=== PATIENT | male | born 1965 | race Caucasian/White ===

== ENCOUNTER 2016-10-15 10:00 | Outpatient (CLI) | payer OTHER, MEDICAID | END 2016-10-15 10:01 | disposition home or self-care (01) | LOC: EMS 10:00 | PROVIDERS: ATTEND Surgery | DX: R40.20 Unspecified coma (principal) | CPT/HCPCS: A0425; A0433 ==

== ENCOUNTER 2016-10-15 10:18 | Emergency (ER) | payer OTHER, MEDICAID ==
[2016-10-15] MEDS ORDERED: WATER FOR INJECTION,STERILE 10 ML ONE (10:19)
[2016-10-15] MEDS ORDERED: MIDAZOLAM 2 MG/2 ML VIAL ONE ×2 (10:19→12:23)
[2016-10-15] MEDS ORDERED: VECURONIUM 10 MG VIAL ONE (10:19)
[2016-10-15] MEDS: VECURONIUM 10 MG VIAL IVP STA (10:24)
[2016-10-15] MEDS: MIDAZOLAM 2 MG/2 ML VIAL IVP STA (10:24)
--- NOTE | 2016-10-15 10:33 | ED Physician Documentation ---
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 ANODIC TREATER Review of Systems Unable to obtain: Unresponsive, Intubated PD ED PE NORMAL - Vitals Vital signs reviewed: Yes (hypertensive) - General General: No: Alert and oriented X 3 - HEENT HEENT: No: Atraumatic (dried blood R side, no lac found), PERRL (R4 L7) - Neck Neck: Other (collared) - Cardiac Cardiac: RRR - Respiratory Respiratory: Other (intubated by EMS, thick gomes secretions in tube, brandy BS, tachypneic bucking and breathing over vent) - Abdomen Abdomen: Soft, Non tender - Derm Derm: Other (abrasion and early bruising to R posterior hip) - Neuro Neuro: Other (upgoing babinski brandy). No: Alert and oriented X 3 Results - Vitals Vitals: Vital Signs - 24 hr 10/15/16 10/15/16 10/15/16 10:20 10:30 10:36 Temperature 37.1 C Heart Rate 114 H 122 H Respiratory 10 L 10 L Rate Blood Pressure 213/123 H 208/118 H O2 Saturation 96 100 10/15/16 10/15/16 10/15/16 11:00 11:15 11:45 Temperature Heart Rate 107 H 110 H 107 H Respiratory Rate Blood Pressure 208/115 H 197/126 H 228/131 H O2 Saturation 100 100 100 10/15/16 10/15/16 12:00 12:30 Temperature Heart Rate 113 H 127 H Respiratory 23 23 Rate Blood Pressure 167/106 H O2 Saturation 100 100 Oxygen O2 Source Room air - EKG (time done) 1028 Rate: Rate (enter#) (114) Rhythm: Sinus tachycardia [place]: Normal Intervals: Normal IN, Prolonged QT (borderline) QRS: Normal Ischemia: Other (LVH) - Labs Labs: Laboratory Tests 10/15/16 10/15/16 10/15/16 10:34 10:34 10:34 WBC 29.5 H RBC 5.89 Hgb 17.5 Hct 51.6 MCV 87.7 MCH 29.8 MCHC 34.0 RDW 13.6 Plt Count 393 MPV 9.0 Neut # 25.7 H Lymph # 1.0 L Delta # 2.7 H Eos # 0.0 Baso # 0.1 Absolute Nucleated RBC 0.02 Nucleated RBCs 0.1 Manual Slide Review Indicated RBC Morph Micro Appear 1+ ANISOCYTOSIS Bld Gas Analysis Time Patient Temperature ABG pH ABG pCO2 ABG pO2 ABG HCO3 ABG Total CO2 ABG O2 Saturation ABG Base Excess Respiration Rate O2 Delivery Device Vent Mode FiO2 Tidal Volume Pressure Support Vent Sodium 138 Potassium 3.6 Chloride 101 Carbon Dioxide 24 Anion Gap 13.0 BUN 39 H Creatinine 1.5 H Estimated GFR (MDRD) 50 L Glucose 128 H Calcium 9.3 Total Bilirubin 1.5 H AST 143 H ALT 66 H Alkaline Phosphatase 104 Total Creatine Kinase Troponin I 0.06 Total Protein 8.1 Albumin 4.6 Globulin 3.5 Albumin/Globulin Ratio 1.3 Lipase 12 L Urine Color Urine Clarity Urine pH Ur Specific [place] Urine Protein Urine Glucose (UA) Urine Ketones Urine Occult Blood Urine Nitrite Urine Bilirubin Urine Urobilinogen Ur Leukocyte Esterase Urine RBC Urine WBC Ur Squamous Epith Cells Urine Bacteria Ur Microscopic Review Urine Culture Comments Salicylates < 6.0 Urine Opiates Screen Ur Oxycodone Screen Urine Methadone Screen Ur Propoxyphene Screen Acetaminophen < 10 L Ur Barbiturates Screen Ur Tricyclics Screen Ur Phencyclidine Scrn Ur Amphetamine Screen U Methamphetamines Scrn U Benzodiazepines Scrn Urine Cocaine Screen U Cannabinoids Screen Ethyl Alcohol < 5.0 10/15/16 10/15/16 10/15/16 10:34 10:41 11:57 WBC RBC Hgb Hct MCV MCH MCHC RDW Plt Count MPV Neut # Lymph # Delta # Eos # Baso # Absolute Nucleated RBC Nucleated RBCs Manual Slide Review RBC Morph Micro Appear Bld Gas Analysis Time 1157 Patient Temperature 37.0 ABG pH 7.39 ABG pCO2 39 ABG pO2 156 H* ABG HCO3 22.7 ABG Total CO2 23.9 ABG O2 Saturation 99 H ABG Base Excess -1.8 Respiration Rate 12 O2 Delivery Device VENTILATOR Vent Mode SIMV FiO2 100.00 Tidal Volume 600 Pressure Support Vent 5 Sodium Potassium Chloride Carbon Dioxide Anion Gap BUN Creatinine Estimated GFR (MDRD) Glucose Calcium Total Bilirubin AST ALT Alkaline Phosphatase Total Creatine Kinase 3518 H* Troponin I Total Protein Albumin Globulin Albumin/Globulin Ratio Lipase Urine Color YELLOW Urine Clarity SL. CLOUDY Urine pH 6.0 Ur Specific [place] 1.025 Urine Protein >=300 Urine Glucose (UA) NEGATIVE Urine Ketones 40 H Urine Occult Blood LARGE H Urine Nitrite NEGATIVE Urine Bilirubin NEGATIVE Urine Urobilinogen 0.2 (NORMAL) Ur Leukocyte Esterase NEGATIVE Urine RBC 6-10 H Urine WBC 0-3 Ur Squamous Epith Cells MOD Squamous H Urine Bacteria Moderate H Ur Microscopic Review INDICATED Urine Culture Comments NOT INDICATED Salicylates Urine Opiates Screen NEGATIVE Ur Oxycodone Screen NEGATIVE Urine Methadone Screen NEGATIVE Ur Propoxyphene Screen NEGATIVE Acetaminophen Ur Barbiturates Screen NEGATIVE Ur Tricyclics Screen NEGATIVE Ur Phencyclidine Scrn NEGATIVE Ur Amphetamine Screen NEGATIVE U Methamphetamines Scrn NEGATIVE U Benzodiazepines Scrn NEGATIVE Urine Cocaine Screen NEGATIVE U Cannabinoids Screen NEGATIVE Ethyl Alcohol - Rads (name of study) CXR Radiology: See rad report (ET 3 cm above adrian, OG in stomach) CTH Radiology: See rad report (large intra axial hematoma centered L basal ganglia extending to L temporal lobe 4.9X 4.95 X 4 cm with surrounding edema. Sig mass effect complete effacement cortical sulci and sig subfalcine and subuncal herniation with effacement of basal cisterns, probable downward trantentorial shift as well on the L, temporal horn R lateral ventricle dilated suggestin entrapment) CT CS Radiology: See rad report (no fx or malalignment) PD MEDICAL DECISION MAKING - ED course ED course: no hx on pt not in EMR not in MINS his dad is en route but not here yet ex called and I spoke to her - she states hx HTN, hyperthyroid, takes no meds, no known drug allergies, brother overdosed on asa and this pt may have had a prior OD as well but she doesn't know on what, smoker no drugs or EtOH large L sided ICH with shift pt intubated OG ellis even on propofol, BP high, per [facility] started nicardipine as well Dr Martinez at [facility] accepts and rec not to give TXA at this time I spoke with ex and sister on phone and per nurse Sheela Dad arrived briefly but immediately left again and I did not get to speak with him Departure - Departure Disposition: 02 Transfer Acute Care Hosp Clinical Impression: Renal insufficiency Intraparenchymal hematoma of brain Qualifiers: Encounter type: initial encounter Laterality: left Loss of consciousness presence/duration: with LOC of unspecified duration Qualified Code(s): S06.359A - Traumatic hemorrhage of left cerebrum with loss of consciousness of unspecified duration, initial encounter Rhabdomyolysis Qualifiers: Rhabdomyolysis type: traumatic Encounter type: initial encounter Qualified Code (s): T79.6XXA - Traumatic ischemia of muscle, initial encounter Condition: Critical Discharge Date/Time: 10/15/16 13:02
[2016-10-15 10:48] LABS: BASOPHILS # (AUTO) 0.1 10^3/uL (0.0-0.1); BASOPHILS % (AUTO) 0.3 %; EOSINOPHILS % (AUTO) 0.1 %; HCT - HEMATOCRIT 51.6 % (42.0-52.0); HGB - HEMOGLOBIN 17.5 g/dL (14.0-18.0); LYMPHOCYTES % (AUTO) 3.4 %; MEAN CORPUSCULAR HEMOGLOBIN 29.8 pg (27.0-31.0); MEAN CORPUSCULAR VOLUME 87.7 fL (80.0-94.0); MONOCYTES # (AUTO) 2.7 10^3/uL (0.0-1.0); MONOCYTES % (AUTO) 9.2 %; NEUTROPHILS # (AUTO) 25.7 10^3/uL (1.5-6.6); NUCLEATED RED BLOOD CELLS AUTO 0.1 /100WBC; RED BLOOD COUNT 5.89 10^6/uL (4.70-6.10); RED CELL DISTRIBUTION WIDTH 13.6 % (12.0-15.0); UNCORRECTED WHITE BLOOD COUNT 29.5 x10^3/uL; WHITE BLOOD COUNT 29.5 x10^3/uL (4.8-10.8)
[2016-10-15 10:50] LABS: UA w/ MICROSCOPIC CHARGE YES
--- NOTE | 2016-10-15 10:52 | XRAY Report ---
EXAM: CHEST RADIOGRAPHY EXAM DATE: 10/15/2016 10:44 AM. CLINICAL HISTORY: Tube and OG placement. COMPARISON: None. TECHNIQUE: 1 view. FINDINGS: Lungs/Pleura: No focal opacities evident. No pleural effusion. No pneumothorax. Mediastinum: Within exam limitations, cardiomediastinal contour is normal. Other: The ET tube is positioned 3.1 cm above the adrian. The NG tube traction of the stomach. IMPRESSION: 1. The ET tube is positioned 3.17 m above the adrian. 2. No focal consolidation. [facility] Referring Provider Line: [phone] SITE ID: [id number]
[2016-10-15 11:04] LABS: BILIRUBIN,URINE NEGATIVE (NEGATIVE)
[2016-10-15 11:05] LABS: ACETAMINOPHEN < 10 ug/mL (10-30); ALBUMIN/GLOBULIN RATIO 1.3 (1.0-2.2); BILIRUBIN,TOTAL 1.5 mg/dL (0.2-1.0); BUN - BLOOD UREA NITROGEN 39 mg/dL (6-20); CALCIUM 9.3 mg/dL (8.5-10.3); CARBON DIOXIDE - CO2 24 mmol/L (21-32); CHLORIDE 101 mmol/L (101-111); CREATININE 1.5 mg/dL (0.6-1.2); GFR - MDRD 50 (>89); GLUCOSE 128 mg/dL (70-100); LIPASE 12 U/L (22-51); POTASSIUM 3.6 mmol/L (3.5-5.0); SALICYLATE < 6.0 mg/dL; SODIUM 138 mmol/L (135-145); TOTAL PROTEIN 8.1 g/dL (6.7-8.2)
[2016-10-15 11:09] LABS: UR CULTURE IF IND NOT INDICATED; WBC,URINE 0-3 /HPF (0-3)
[2016-10-15] MEDS ORDERED: PROPOFOL 1000 MG/100 ML 100 ML IV ONE (11:30)
[2016-10-15] MEDS: PROPOFOL 1000 MG/100 ML 100 ML IV STA (11:39)
--- NOTE | 2016-10-15 12:14 | CT Preliminary Report ---
Exam: CT Head W/O Impression: 1. Large intra-axial hematoma, centered in lateral left basal ganglia region with extension into uppe r left temporal lobe. The hematoma measures about 4.9 x 4.95 x 4 cm. There is surrounding edema. 2. Significant associated mass effect with complete effacement of cortical sulci over the cerebral co nvexities, significant subfalcine and electronic warfare operator herniation and complete effacement of the basal cistern s. There is some probable early downward transtentorial herniation on the left. 3. Temporal horn of right lateral ventricle is dilated suggesting early entrapment. 4. No obvious acute ischemic change is demonstrated within the brain. SITE ID: [id number]
--- NOTE | 2016-10-15 12:24 | CT Preliminary Report ---
Exam: CT Cervical Spine W/O Impression: 1. Multilevel degenerative changes as described. 2. No evidence of fracture or acute malalignment. 3. Please note position of orogastric tube (see above). SITE ID: [id number]
[2016-10-15] MEDS: MIDAZOLAM 2 MG/2 ML VIAL IVP ONE (12:30)
--- NOTE | 2016-10-15 12:51 | CT Report ---
CT HEAD WITHOUT CONTRAST INDICATION: 51-year-old male, found down, left pupil 7 mm, right 4 mm. The patient is unresponsive. P lease assess. COMPARISON: None. TECHNIQUE: Sequential 5 mm axial images were obtained through the brain. In accordance with CT protocol optimization, one or more of the following dose reduction techniques w ere utilized for this exam: automated exposure control, adjustment of mA and/or KV based on patient s ize, or use of iterative reconstructive technique. FINDINGS: No focal scalp hematoma is demonstrated. The skull and skull base appear intact. The mastoid air cell s and middle ear cavities are clear. The imaged paranasal sinuses appear clear. The patient is orally intubated. An orogastric tube is present. The orogastric tube appears to be looped in the nasopharyn x (see image 1 of series 3). The patient's head is significantly tilted in the CT gantry, making assessment somewhat difficult. There is a fairly large, intra-axial hematoma centered in the lateral left basal ganglia region with extension caudad, through the temporal stem, into the upper left temporal lobe. The hematoma measures about 4.9 cm maximal AP x 4.95 cm maximal transverse x about 4 cm maximal craniocaudad. This represe nts a roughly 50 mL hematoma. There is surrounding hypodensity, likely representing reactive vasogeni c edema. There is left-sided mass effect with effacement of the cortical sulci. In addition, there is significant left to right midline shift that appears to measure up to 10 mm. There is significant, m edial displacement of the left uncus and parahippocampal gyrus with complete effacement of the perime sencephalic cisterns. There appears to be at least early downward transtentorial herniation on the le ft. There is significant compression of left lateral ventricle. The third ventricle is completely eff aced. The temporal horn of the right lateral ventricle is dilated, suggesting probable early entrapme nt. On image 11 noted is subtle hyperdensity in the distribution of the sylvian cisterns, anterior interh emispheric fissure, and perimesencephalic cisterns. This probably represents "pseudo-subarachnoid hem orrhage" rather than a true subarachnoid blood. On image 15 of series 2, there is a small focus of hy perdensity in posterior aspect frontal horn left lateral ventricle or in left foramen of [place]. This could represent a small amount of intraventricular blood or may simply represent the choroid plexus. No epidural or subdural hematoma is demonstrated. No obvious acute ischemic change is seen within the brain. However, assessment is somewhat limited du e to fairly extensive noise on brain window images. IMPRESSION: 1. Large intraaxial hematoma, centered in lateral left basal ganglia region with extension into upper left temporal lobe. The hematoma measures about 4.9 x 4.95 x 4 cm. There is surrounding edema. 2. Significant associated mass effect with complete effacement of cortical sulci over the cerebral co nvexities, significant subfalcine and uncal herniation and complete effacement of the basal cisterns. There is probable early downward transtentorial herniation on the left. 3. Temporal horn of right lateral ventricle is dilated suggesting early entrapment. 4. No obvious acute ischemic change is demonstrated within the brain. Critical Result: A brief preliminary report for this examination was given to Dr. Chan, following preliminary assess ment on 10/15/2016 at approximately 11:52 a.m. Referring Provider Line: [phone] SITE ID: [id number]
--- NOTE | 2016-10-15 12:51 | CT Report ---
CT CERVICAL SPINE WITHOUT CONTRAST INDICATION: 51-year-old male found down. Please assess. TECHNIQUE: Helical scan with reconstruction into 2 mm axial images. In addition, sagittal and coronal reformatio ns have been generated. Images are available in bone and soft tissue windows. In accordance with CT protocol optimization, one or more of the following dose reduction techniques w ere utilized for this exam: automated exposure control, adjustment of mA and/or KV based on patient s ize, or use of iterative reconstructive technique. COMPARISON: None. FINDINGS: No acute cervical spine fracture is demonstrated. The vertebral body heights are maintained throughou t. The pedicles and posterior arches appear intact. There is a [id number] levoconvex scoliosis with apex near the cervicothoracic junction. Alignme nt in the sagittal plane is essentially normal. There is multilevel degenerative disk space narrowing with mild narrowing at C4-C5, mild to moderate narrowing at C5-C6 and moderate narrowing at C6-C7 and C7-T1. Evaluation for disk herniation/spinal s tenosis is limited on this study performed without intrathecal contrast. However, no obvious, high-gr tra spinal stenosis is demonstrated. There is multilevel bony facet and uncovertebral hypertrophy wit h associated foraminal narrowing. The foraminal narrowing appears to be most prominent and relatively severe at C5-C6 and C6-C7 on the right where there could be impingement of exiting nerve roots. No lytic or destructive bone lesion is demonstrated. The patient is orally intubated. The distal tip of the endotracheal tube is not included in the field of view provided. An orogastric tube has been inserted. It descends along the left side of the phary nx, into the upper esophagus where it is looped back on itself. It then ascends craniad to the nasoph arynx where it is looped back on itself. It then descends to at least the level of the upper thoracic esophagus at about the T2-T3 level. The regional soft tissues in the neck are unremarkable. No obvious changes of contusion or hematoma d emonstrated. There is non-aeration in the posterior aspect, upper lobe right lung, probably representing atelectas is. No discrete, mass/nodule is demonstrated in the imaged upper lungs. IMPRESSION: 1. Multilevel degenerative changes as described. 2. No evidence of fracture or acute malalignment. 3. Please note position of orogastric tube (see above). Referring Provider Line: [phone] SITE ID: [id number]
[2016-10-15 12:56] VITALS: BP 167/106
[2016-10-15 13:40] LABS: ABG ANALYSIS TIME 1157; ABG PCO2 39 mmHg (34-45); ABG PH 7.39 (7.35-7.45)
[2016-10-15 13:41] LABS: ABG BASE EXCESS -1.8 mmol/L (-2.0-3.0); ABG HCO3 22.7 mmol/L (22.0-26.0); ABG MODE OF VENTILATION SIMV; ABG O2 DEVICE VENTILATOR; ABG OXYGEN SATURATION 99 % (94-98); ABG PRESSURE SUPPORT VENT 5 cmH2O; ABG RESPIRATORY RATE 12 b/min; ABG TCO2 23.9 MMOL/L (21.0-29.0)
[2016-10-15 13:42] LABS: ABG PO2 156 mmHg (80-100)
== END 2016-10-15 13:02 | disposition short-term general hospital (02) ==
LOC: ED 10:18
DX: S06.359A Traumatic hemorrhage of left cerebrum with loss of consciousness of unspecified duration, initial encounter (principal); T79.6XXA Traumatic ischemia of muscle, initial encounter; X58.XXXA Exposure to other specified factors, initial encounter; N28.9 Disorder of kidney and ureter, unspecified; I10 Essential (primary) hypertension; E05.90 Thyrotoxicosis, unspecified without thyrotoxic crisis or storm
CPT/HCPCS: 36415; 43752; 51702; 70450; 71010; 72125; 80053; 80306; 80307; 80320; 80329; 81001; 81003; 82550; 82803; 83690; 84484; 85025; 87086; 93005; 93010; 96365; 96368; 96375; 96376; 99285; 99291